=== PATIENT | female | born 1945 | race Asian ===

== ENCOUNTER 2023-03-03 05:42 | Day surgery (SDC) | payer OTHER ==
[~2023-03-03] VITALS: Ht 154.9 cm; Wt 58.6 kg
[2023-03-03] MEDS ORDERED: SODIUM CHLORIDE 0.9% 1,000 ML IV ONE (07:00)
[2023-03-03] MEDS ORDERED: SODIUM CHLORIDE 0.9% 1,000 ML ONE (07:18)
[2023-03-03] MEDS ORDERED: MIDAZOLAM HCL 2 MG/2 ML VIAL ONE (07:35)
[2023-03-03] MEDS ORDERED: FentaNYL CITRATE PF 100 MCG/2 ML VIAL ONE (07:35)
[2023-03-03] MEDS ORDERED: ASPI-1444 PO (08:17)
[2023-03-03] MEDS ORDERED: CHOL500013 PO (08:17)
[2023-03-03] MEDS ORDERED: LISI-892 PO (08:17)
[2023-03-03] MEDS ORDERED: CELE200 PO (08:17)
[2023-03-03] MEDS ORDERED: ALBU18HF12 IH (08:17)
[2023-03-03] MEDS ORDERED: GABA-1181 PO (08:17)
[2023-03-03] MEDS ORDERED: HYDR25TA2 PO (08:17)
[2023-03-03] MEDS ORDERED: AZEL23SP2 NASAL (08:17)
[2023-03-03] MEDS ORDERED: MULT-1192 PO (08:17)
[2023-03-03] MEDS ORDERED: DOXY-354 PO (08:17)
[2023-03-03] MEDS ORDERED: ATOR40TA28 PO (08:17)
[2023-03-03] MEDS ORDERED: MethylPREDNISolone SOD SUCC 125 MG/2 ML VIAL ONE (08:49)
[2023-03-03] MEDS ORDERED: MethylPREDNISolone SOD SUCC 125 MG/2 ML VIAL IVP ONE (09:15)
== END 2023-03-03 11:10 | disposition home or self-care (01) ==
LOC: SURGERY 05:42
PROVIDERS: ATTEND Internal Medicine Critical Care Medicine
DX: J38.4 Edema of larynx (principal); B37.0 Candidal stomatitis; I10 Essential (primary) hypertension; Z98.49 Cataract extraction status, unspecified eye; Z98.890 Other specified postprocedural states; Z79.82 Long term (current) use of aspirin; Z79.899 Other long term (current) drug therapy
CPT/HCPCS: 31623; 88112; 87206; 87101; 87220; 87070; 87015; 31624; 94640; 71045; J3010; J2250; J2930; J7030